=== PATIENT | female | born 1960 | race Caucasian/White ===

== ENCOUNTER 2020-09-12 00:19 | Emergency (ER) | payer MEDICARE ==
[~2020-09-12] VITALS: Ht 165.1 cm; Wt 109.0 kg
[2020-09-12 00:38] VITALS: BP 174/85
[2020-09-12] MEDS ORDERED: OXYC5TAB88 PO (01:42)
--- NOTE | 2020-09-12 01:42 | PHYS DOC ---
Past History Past Medical History: Arthritis, Diabetes, Other Additional Past Medical Histor: RA Past Surgical History: Cholecystectomy, , Other Additional Past Surgical Histo: HERNIA, CARPAL TUNNEL, Alcohol Use: Rarely Adult General Chief Complaint Chief Complaint: HIP PAIN HPI HPI Patient is a 60-year-old female with a past medical history significant for osteoarthritis who presents with left hip pain. States she has been having some pain in her left hip, more than usual over the last few days, 7 out of 10, dull and achy in nature. States she had this a few times a year, when it flares up on her. Denies any recent traumas, travel, fevers, cold/flu/Covid symptoms, chest pain, shortness of breath, abdominal pain, nausea, vomiting, dysuria, hematuria or blood in the stool. States she is able to walk/stand/sit without issue but just has the aching in her hip. States all she has at home is tramadol which usually works but when she has a flareup does not. States she has an appointment with her primary care physician in a couple of days to discussed further pain management. Review of Systems Review of Systems Review of systems otherwise unremarkable except noted in HPI Allergies Allergies Allergies Coded Allergies Type Severity Reaction Last Updated Verified erythromycin base Adverse Reaction Unknown Nausea and Vomiting 09/12/20 Yes naproxen Adverse Reaction Unknown Nausea and Vomiting 09/12/20 Yes Physical Exam Physical Exam Constitutional: Well developed, well nourished, no acute distress, non-toxic appearance. [] HENT: Normocephalic, atraumatic, Neck: Normal range of motion, no tenderness, supple, no stridor. [] Cardiovascular:Heart rate regular rhythm, no murmur [] Lungs & Thorax: Bilateral breath sounds clear to auscultation [] Abdomen: soft, no tenderness, no masses, no pulsatile masses. [] Skin: Warm, dry, no erythema, no rash. [] Back: No tenderness, Extremities: No tenderness, ROM intact, no edema. [] Neurologic: Alert and oriented X 3, normal motor function, normal sensory function, able to sit, stand and walk without issue, no focal deficits noted. [] Psychologic: Affect normal, judgement normal, mood normal. [] Current Patient Data Vital Signs Vital Signs Date Time Temp Pulse Resp B/P (MAP) Pulse Ox O2 Delivery O2 Flow Rate FiO2 5/20/21 00:38 97.8 83 18 174/85 (114) 98 Room Air EKG EKG [] Radiology/Procedures Radiology/Procedures [] Heart Score C/O Chest Pain: No Risk Factors: Risk Factors: DM, Current or recent (<one month) smoker, HTN, HLP, family history of CAD, obesity. Risk Scores: Risk Factors: DM, Current or recent (<one month) smoker, HTN, HLP, family history of CAD, obesity. Course & Med Decision Making Course & Med Decision Making Patient is a 60-year-old female who presents with endorsed osteoarthritis flare of her left hip Also notable for hypertension. Physical exam noted above. Patient given pain medication in the emergency department. Patient awake, alert and oriented in no acute distress with no focal neurologic deficits. Range of motion intact. Discussed all findings with patient who agreed she just needed some pain management until she could make it until her doctor's appointment on Wednesday. Advised to keep her appointment coming up Wednesday to discuss her ED visit and need for better pain management at home. Gave return precautions to the ED. Patient and family grateful, verbalized understanding and agreed with plan of discharge. Dragon Disclaimer Dragon Disclaimer This electronic medical record was generated, in whole or in part, using a voice recognition dictation system. Departure Departure: Impression: Primary Impression: Hip pain Disposition: HOME / SELF CARE / HOMELESS Condition: GOOD Referrals: SAMARA ALVA MD (PCP) Patient Instructions: Arthralgia, [id number], RICE - Routine Care for Injuries Additional Instructions: Please read all of the attached information carefully. Please continue on the pain regimen we discussed in the emergency department. Please keep your upcoming appointment with your primary care physician as discussed to discuss your emergency department visit and need for pain management at home. Please come back to the emergency department immediately with any new or concerning symptoms. Scripts Oxycodone HCl (Roxicodone) 5 Mg Tablet 5 MG PO TID for hip pain for 3 Days, #9 TAB Prov: JESSICA HERNANDEZ MD 09/12/20 JESSICA HERNANDEZ MD September 12, 2020 01:42
[2020-09-12] MEDS ORDERED: ACETAMINOPHEN 500 MG TABLET PO ONE (02:00)
[2020-09-12] MEDS ORDERED: oxyCODONE IR 5 MG TABLET PO PRN (02:00)
== END 2020-09-12 01:54 | disposition home or self-care (01) ==
LOC: ER 00:19
DX: M25.552 Pain in left hip (principal); E11.9 Type 2 diabetes mellitus without complications; Z88.1 Allergy status to other antibiotic agents; Z90.49 Acquired absence of other specified parts of digestive tract
CPT/HCPCS: 99283-25

== ENCOUNTER → 2020-09-12 | Outpatient (CLI) | payer MEDICARE ==
[~2020-09-12] MED LIST: OXYC5TAB88 PO
[2020-09-12 00:38] VITALS: BP 174/85
--- NOTE | 2020-09-12 10:17 | RAD ---
EXAM: Pelvis and left hip, 3 views. HISTORY: Pain. COMPARISON: None. FINDINGS: A frontal view of the pelvis and 2 views of the left hip are obtained. There is no fracture , dislocation or subluxation. There is minimal right hip osteoarthritis. There is a calcified uterine fibroid overlying the pelvis. There are postoperative changes involving the ventral abdominal wall, partially included on the [id number]. There is degenerative change involving the lumbar spine. IMPRESSION: No acute osseous finding. Electronically signed by: Carmel Wen MD (09/12/2020 10:15 AM) [id number]
== END ==
LOC: RAD 09:58
PROVIDERS: ATTEND Nurse Practitioner Family
DX: M25.552 Pain in left hip (principal); M47.816 Spondylosis without myelopathy or radiculopathy, lumbar region
CPT/HCPCS: 73502

== ENCOUNTER 2020-09-15 04:31 | Emergency (ER) | payer MEDICARE ==
[~2020-09-15] VITALS: Ht 165.1 cm; Wt 109.0 kg
[2020-09-15 04:31] VITALS: BP 175/105
--- NOTE | 2020-09-15 05:10 | PHYS DOC ---
Past History Past Medical History: Arthritis, Diabetes, Other Additional Past Medical Histor: RA Past Surgical History: Cholecystectomy, , Other Additional Past Surgical Histo: HERNIA, CARPAL TUNNEL, Alcohol Use: Rarely Adult General Chief Complaint Chief Complaint: HIP PAIN HPI HPI Patient is a 60-year-old female with past medical history significant left hip pain who presents for left hip pain. States she was in the emergency department a couple nights ago for the same thing and was treated and had some relief and was given a prescription for pain medicine but had not had a chance to get them filled. States she did have a chance to make it to the pharmacy, and then saw a nurse practitioner in urgent care who told her not to fill them and start her on steroids. States that she started taking prednisone but has not helped and only elevated her blood sugar. States she still has a prescription and is going to fill it today but wants some pain relief because her hip is hurting, 6 out of 10, dull and achy in nature. Denies any weakness/numbness/tingling. States she is able to walk. Review of Systems Review of Systems Review of systems otherwise unremarkable except noted in HPI Allergies Allergies Allergies Coded Allergies Type Severity Reaction Last Updated Verified erythromycin base Adverse Reaction Unknown Nausea and Vomiting 09/12/20 Yes naproxen Adverse Reaction Unknown Nausea and Vomiting 09/12/20 Yes Physical Exam Physical Exam Constitutional: Well developed, well nourished, no acute distress, non-toxic appearance. [] Neck: Normal range of motion, Cardiovascular:Heart rate regular rhythm, no murmur [] Lungs & Thorax: Bilateral breath sounds clear to auscultation [] Back: No tenderness, Extremities: No tenderness, no cyanosis, no clubbing, ROM intact, no edema. [] Neurologic: Alert and oriented X 3, normal motor function, normal sensory function, able to sit, stand and walk without issue no focal deficits noted. [] Psychologic: Affect normal, judgement normal, mood normal. [] EKG EKG [] Radiology/Procedures Radiology/Procedures [] Heart Score C/O Chest Pain: No Risk Factors: Risk Factors: DM, Current or recent (<one month) smoker, HTN, HLP, family history of CAD, obesity. Risk Scores: Risk Factors: DM, Current or recent (<one month) smoker, HTN, HLP, family history of CAD, obesity. Course & Med Decision Making Course & Med Decision Making Patient is a 60-year-old female presents with left hip pain Vital signs not concerning. Physical exam noted above. Patient with no focal neurologic deficits. Range of motion normal. Patient able to sit, stand and walk with no issue. Recent imaging with no acute osseous abnormalities. Patient given 1 oral dose of Percocet in the emergency department advised to fi ll her prescription and use as prescribed along with other pain medications as recommended in previous visit and visit today. Also advised to call primary care physician in the morning to discuss her ED visits, need for better pain management and probable MRI versus instrument repair specialist consultation. Gave return precautions to the ED. Patient grateful, verbalized understanding and agreed with plan of discharge. [] Dragon Disclaimer Dragon Disclaimer This electronic medical record was generated, in whole or in part, using a voice recognition dictation system. Departure Departure: Impression: Primary Impression: Hip pain Disposition: HOME / SELF CARE / HOMELESS Condition: GOOD Referrals: SAMARA ALVA MD (PCP) Patient Instructions: Hip Pain, RICE - Routine Care for Injuries Additional Instructions: Please read all the attached information very carefully. Please take your prescription pain medicine as recommended. You can also take Tylenol as well. Please do not exceed 3000 mg of Tylenol daily. Please call your primary care physician first thing Wednesday morning to discuss need for follow-up visit. Please discuss possible treatments and diagnostics such as MRI, physical therapy, pain management clinic, and if needed a consultation with a instrument repair specialist. Please come back to the emergency department with new or concerning symptoms as discussed. JESSICA HERNANDEZ MD September 15, 2020 05:10
[2020-09-15] MEDS ORDERED: oxyCODONE/APAP 5/325 1 TAB TABLET PO ONE (05:30)
== END 2020-09-15 05:25 | disposition home or self-care (01) ==
LOC: ER 04:31
DX: M25.552 Pain in left hip (principal); E11.9 Type 2 diabetes mellitus without complications; Z88.1 Allergy status to other antibiotic agents; Z88.8 Allergy status to other drugs, medicaments and biological substances; Z90.49 Acquired absence of other specified parts of digestive tract
CPT/HCPCS: 99283

== ENCOUNTER → 2020-12-23 | Outpatient (CLI) | payer MEDICARE ==
--- NOTE | 2020-12-24 08:46 | RAD ---
CLINICAL INDICATION: GAUDENCIO VELA, who is 60 years of age, presents for imaging evaluation of the r egion of pain in the right breast. COMPARISON: No prior imaging is available. TECHNIQUE: Diagnostic views of the bilateral breasts were obtained, utilizing digital technique. BREAST COMPOSITION: There are scattered fibroglandular densities. MAMMOGRAM FINDINGS: Benign type calcifications are seen. There are no suspicious masses, microcalcifications, or architectural distortion to suggest malignanc y in either breast. The visualized axillae appear unremarkable. ULTRASOUND FINDINGS: Targeted ultrasound of the patient detected area of concern was performed. Imaging of the superior right breast and right axilla was performed: Parenchymal tissue of normal ech otexture is present. IMPRESSION: 1. No mammographic evidence of malignancy in either breast. RECOMMENDATION: Clinical management of the patient's reported region of pain is recommended based on followup physica l examination and assessment. In the absence of new clinical symptoms or change in physical exam, courtney rt term follow up diagnostic examination is recommended in 12 months to assess for interval change. BIRADS 2: BENIGN Electronically signed by: Nahum Waldrop MD (12/24/2020 8:43 AM) [id number]
== END ==
LOC: MAMMO 13:54
PROVIDERS: ATTEND Family Medicine
DX: R92.1 Mammographic calcification found on diagnostic imaging of breast (principal)
CPT/HCPCS: 76642; 77066; G0279; 77062